=== PATIENT | female | born 1995 | race African-American/Black ===

== ENCOUNTER → 2016-06-03 | Outpatient (CLI) | payer BC ==
--- NOTE | ~2016-06-03 | US5 ---
[facility] A Service of [facility] RADIOLOGY TEXT RESULTS PATIENT: ELIANA MERAZ LOCATION: [facility] : [birth year] UNIT #: [id number] AGE: [address]: Zohaib Fuentes MD SEX: F ORDER DR: [id number] [place] [id number] MR#: [id number] Acc #: [id number] NAME: ELIANA MERAZ : 1995 SEX: F STUDY DATE/TIME: 06/03/2016 9:45 UNIT: SGUS ROOM: STUDY DESCRIPTION: US Abdominal Complete Attending Physician: Zohaib Fuentes M.D. Referring Physician: Zohaib Fuentes M.D. Ordering Physician: Zohaib Fuentes M.D. Primary Care Physician: Zohaib Fuentes M.D. MEDICAL IMAGING REPORT This report is preliminary unless electronic signature is present. EXAM Abdominal ultrasound. INDICATIONS Generalized abdominal pain for the past 3 months. TECHNIQUE Gillis-scale and Doppler imaging of the abdomen. COMPARISON None FINDINGS Visualized portions of pancreas are unremarkable. The liver measures 14.5 cm. No liver mass on submitted images. Right kidney measures 10.2 cm. No hydronephrosis. Unremarkable gallbladder. Common duct measures 2 mm. On submitted images abdominal aorta and vena cava unremarkable. Left kidney measures 10.3 cm. No hydronephrosis. The spleen measures 9.1 cm. IMPRESSION Negative abdominal ultrasound. Dictated by... Wilfrido Kwan M.D. THIS IS AN ELECTRONICALLY VERIFIED REPORT Wilfrido Kwan M.D. at 06/06/2016 8:23 AM ALY/michelle TD: 06/03/2016 15:06 JOB #: [id number] [facility] A Service [facility] RADIOLOGY TEXT RESULTS PATIENT: ELIANA MERAZ LOCATION: [facility] : [birth year] UNIT #: [id number] AGE: [address]: Zohaib Fuentes MD SEX: F ORDER DR: MEDICAL IMAGING REPORT Page 1 of 1
== END | disposition home or self-care (01) ==
LOC: SGUS 09:35
DX: R10.9 Unspecified abdominal pain (principal); K59.00 Constipation, unspecified
CPT/HCPCS: 76700